=== PATIENT | male | born 1950 | race Caucasian/White ===

== ENCOUNTER → 2017-02-17 | Outpatient (CLI) | payer SELFPAY ==
[~2017-02-17] MED LIST: MOTRIN 600600 MG/TAB PO
== END ==
LOC: COL.RAD 09:17
DX: Z02.71 Encounter for disability determination (principal); M47.816 Spondylosis without myelopathy or radiculopathy, lumbar region

== ENCOUNTER → 2018-03-02 | Outpatient (CLI) | payer MEDICARE, BC | LOC: MHCPAIN 15:09 | DX: G89.29 Other chronic pain (principal); M47.817 Spondylosis without myelopathy or radiculopathy, lumbosacral region; M54.16 Radiculopathy, lumbar region; M53.3 Sacrococcygeal disorders, not elsewhere classified; M96.1 Postlaminectomy syndrome, not elsewhere classified | CPT/HCPCS: G0463 ==

== ENCOUNTER → 2018-03-10 | Outpatient (CLI) | payer MEDICARE, BC | LOC: MHCPAIN 09:34 | DX: M47.817 Spondylosis without myelopathy or radiculopathy, lumbosacral region (principal); M54.16 Radiculopathy, lumbar region | CPT/HCPCS: G0260; J1040 ==

== ENCOUNTER → 2018-04-21 | Outpatient (CLI) | payer MEDICARE, BC | LOC: MHCPAIN 10:48 | DX: G89.29 Other chronic pain (principal); M47.817 Spondylosis without myelopathy or radiculopathy, lumbosacral region; M54.16 Radiculopathy, lumbar region; M53.3 Sacrococcygeal disorders, not elsewhere classified; M96.1 Postlaminectomy syndrome, not elsewhere classified | CPT/HCPCS: G0463 ==

== ENCOUNTER → 2018-05-03 | Outpatient (CLI) | payer MEDICARE, BC | LOC: MHCPAIN 11:24 | DX: M47.817 Spondylosis without myelopathy or radiculopathy, lumbosacral region (principal); M54.16 Radiculopathy, lumbar region | CPT/HCPCS: J1100; Q9967 ==

== ENCOUNTER → 2018-05-17 | Outpatient (CLI) | payer MEDICARE, BC | LOC: MHCPAIN 10:48 | DX: G89.29 Other chronic pain (principal); M47.817 Spondylosis without myelopathy or radiculopathy, lumbosacral region; M54.16 Radiculopathy, lumbar region; M53.3 Sacrococcygeal disorders, not elsewhere classified; M96.1 Postlaminectomy syndrome, not elsewhere classified | CPT/HCPCS: G0463 ==

== ENCOUNTER 2018-05-18 12:45 | Outpatient (RCR) | payer MEDICARE, BC | END 2018-06-11 10:52 | disposition home or self-care (01) | LOC: WSPT 12:45 | DX: M47.26 Other spondylosis with radiculopathy, lumbar region (principal); M47.818 Spondylosis without myelopathy or radiculopathy, sacral and sacrococcygeal region; M53.3 Sacrococcygeal disorders, not elsewhere classified; M96.1 Postlaminectomy syndrome, not elsewhere classified; G89.29 Other chronic pain | CPT/HCPCS: G8978-GP; G8979-GP ==

== ENCOUNTER → 2018-08-11 | Outpatient (CLI) | payer MEDICARE, BC | LOC: MHCPAIN 11:09 | DX: G89.29 Other chronic pain (principal); M47.817 Spondylosis without myelopathy or radiculopathy, lumbosacral region; M54.16 Radiculopathy, lumbar region; M53.3 Sacrococcygeal disorders, not elsewhere classified; M96.1 Postlaminectomy syndrome, not elsewhere classified | CPT/HCPCS: G0463 ==

== ENCOUNTER → 2018-08-12 | Outpatient (CLI) | payer MEDICARE, BC | LOC: MHCPAIN 13:16 | DX: M47.817 Spondylosis without myelopathy or radiculopathy, lumbosacral region (principal); M54.16 Radiculopathy, lumbar region | CPT/HCPCS: J1100; Q9967 ==

== ENCOUNTER → 2018-08-18 | Outpatient (CLI) | payer MEDICARE, BC | LOC: MHCPAIN 12:49 | DX: G89.29 Other chronic pain (principal); M47.817 Spondylosis without myelopathy or radiculopathy, lumbosacral region; M54.16 Radiculopathy, lumbar region; M53.3 Sacrococcygeal disorders, not elsewhere classified; M96.1 Postlaminectomy syndrome, not elsewhere classified | CPT/HCPCS: G0463 ==

== ENCOUNTER → 2018-11-03 | Outpatient (CLI) | payer MEDICARE, BC | LOC: MHCPAIN 10:11 | DX: G89.29 Other chronic pain (principal); M47.817 Spondylosis without myelopathy or radiculopathy, lumbosacral region; M54.16 Radiculopathy, lumbar region; M53.3 Sacrococcygeal disorders, not elsewhere classified; M96.1 Postlaminectomy syndrome, not elsewhere classified | CPT/HCPCS: G0463 ==

== ENCOUNTER 2018-12-20 10:42 | Emergency (ER) | payer MEDICARE, BC ==
[~2018-12-20] VITALS: Ht 170.2 cm; Wt 75.9 kg
[2018-12-20 11:04] VITALS: BP 162/88; TEMP 97.9
[2018-12-20 12:00] VITALS: PULSE 71
== END 2018-12-20 12:05 | disposition home or self-care (01) ==
LOC: COL.ER 10:42
DX: S92.342A Displaced fracture of fourth metatarsal bone, left foot, initial encounter for closed fracture (principal); W31.9XXA Contact with unspecified machinery, initial encounter

== ENCOUNTER → 2018-12-23 | Outpatient (CLI) | payer MEDICARE, BC | LOC: MHCPAIN 08:44 | DX: M54.16 Radiculopathy, lumbar region (principal); M47.817 Spondylosis without myelopathy or radiculopathy, lumbosacral region; G89.29 Other chronic pain | CPT/HCPCS: G0463; J1100; Q9967 ==

== ENCOUNTER → 2019-02-07 | Outpatient (CLI) | payer MEDICARE, BC | LOC: MHCPAIN 10:56 | DX: G89.29 Other chronic pain (principal); M47.817 Spondylosis without myelopathy or radiculopathy, lumbosacral region; M54.16 Radiculopathy, lumbar region; M53.3 Sacrococcygeal disorders, not elsewhere classified; M96.1 Postlaminectomy syndrome, not elsewhere classified | CPT/HCPCS: G0463 ==

== ENCOUNTER → 2019-05-10 | Outpatient (CLI) | payer MEDICARE, BC | LOC: MHCPAIN 11:03 | DX: M47.817 Spondylosis without myelopathy or radiculopathy, lumbosacral region (principal); M54.16 Radiculopathy, lumbar region | CPT/HCPCS: G0463 ==

== ENCOUNTER 2019-09-02 06:05 | Emergency (ER) | payer MEDICARE, BC ==
[~2019-09-02] VITALS: Ht 167.6 cm; Wt 77.3 kg
[2019-09-02 06:14] VITALS: TEMP 98.9
[2019-09-02] MEDS ORDERED: CEPHALEXIN500 M1 PO (06:35)
[2019-09-02] MEDS ORDERED: LEVAQUIN 750MG750 M1 PO (06:35)
[2019-09-02 06:57] VITALS: BP 134/90; PULSE 62
== END 2019-09-02 07:00 | disposition home or self-care (01) ==
LOC: COL.ER 06:05
DX: S61.221A Laceration with foreign body of left index finger without damage to nail, initial encounter (principal); Z23 Encounter for immunization; W45.8XXA Other foreign body or object entering through skin, initial encounter

== ENCOUNTER → 2019-10-19 | Outpatient (CLI) | payer MEDICARE, BC ==
[~2019-10-19] MED LIST changes: +CEPHALEXIN500 M1 PO; +LEVAQUIN 750MG750 M1 PO
== END ==
LOC: MHCPAIN 11:24
DX: M47.817 Spondylosis without myelopathy or radiculopathy, lumbosacral region (principal); M54.5 Low back pain; M53.3 Sacrococcygeal disorders, not elsewhere classified; M96.1 Postlaminectomy syndrome, not elsewhere classified; M54.16 Radiculopathy, lumbar region; G89.29 Other chronic pain
CPT/HCPCS: G0463

== ENCOUNTER → 2019-10-26 | Outpatient (CLI) | payer MEDICARE, BC ==
[~2019-10-26] MED LIST changes: +B-121000 MCG PO; +FOLIC ACID 40400 MCG PO; +LIORESAL 1010 MG/TAB PO; +NATURAL IRON65 MG; +OMEGA-3 1000 MG1 CAP PO; +ONE-A-DAY ESSE1 EACH PO; +TIROSINT100 MC1 PO; +TYLENOL 325MG325 MG PO; +ULTRAM 50MG TAB50 MG PO; +VITAMIN C500 MG PO; +VOLTAREN 75 DR75 MG PO
== END ==
LOC: COL.LAB 13:08
DX: Z01.812 Encounter for preprocedural laboratory examination (principal); Z01.83 Encounter for blood typing; Z20.828 Contact with and (suspected) exposure to other viral communicable diseases; M16.11 Unilateral primary osteoarthritis, right hip

== ENCOUNTER 2019-10-31 05:16 | Day surgery (SDC) | payer MEDICARE, BC ==
[2019-10-31] VITALS (12 sets, daily range): BP systolic 110–148; BP diastolic 62–87; PULSE 54–95; TEMP 98–98.9
[~2019-10-31] VITALS: Ht 167.6 cm; Wt 74.3 kg
--- NOTE | 2019-10-31 05:15 | NUR ---
Arrived to room 329 via wheelchair. Admission assessment complete. Oriented to room and policy. IV started in right [id number] attempt. Preop meds given, consent signed. Call light in reach. Will monitor.
[~2019-10-31 05:16] MED LIST changes: -FOLIC ACID 40400 MCG PO; -NATURAL IRON65 MG
[2019-10-31] MEDS ORDERED: FOLIC ACID 40400 MCG PO (05:51)
[2019-10-31] MEDS ORDERED: NATURAL IRON65 MG (05:52)
--- NOTE | 2019-10-31 06:25 | NUR ---
To OR via bed at this time.
--- NOTE | 2019-10-31 11:01 | NUR ---
PT TO ROOM 329 PER BED WITH REPORT FROM [facility] PAC[facility] @ 1023 PT IS A/O X3, LUNGS CLEAR, BOWEL SOUNDS PRESENT. PEDAL PULSES PALPABLE. IV TO PUMP. BULKY DRESSING TO RIGHT HIP CDI. PT DENIES N/V.
--- NOTE | 2019-10-31 11:21 | NUR ---
STARTED PO PAIN MEDICATION ORDERED. PT REPORTING INCREASING PAIN TO HIP.
--- NOTE | 2019-10-31 15:55 | NUR ---
PT C/O INCREASING PAIN. ULTRADamon IS NOT WORKING BY PT REPORT. GAVE ANOTHER DOSE OF OXYCODONE. PT HAD NAUSEA AND VOMITED LUNCH. IV ZOFRAN GIVEN.
--- NOTE | 2019-10-31 16:03 | NUR ---
Emergency Management Director met with the patient to complete initial intake. The patient lives alone in [place]. The patient has a walker, cane, and is independent with ADLs. The patient's PCP is Dr. Hill and patient receives medications from [facility] with no difficulties. The patient does not have advanced directives in the EMR and was not interested in DPOA-HC form at this time. The patient has two children over 18, Rudi San from [place] and Navdeep San from [place], [place]. Their phone numbers are [phone] and [phone], respectively. The patient will return home at discharge. He will have a person stay with him for two weeks to assist him. He will be having outpatient PT at [facility] and his first appointment is November 06 at 1020. The patient has no concerns about returning home. There are no additional needs at this time.
--- NOTE | 2019-10-31 17:24 | NUR ---
UP TO RECLINER WITH SBA. PT BECAME NAUSEATED AND VOMITED. COOL CLOTH AND SPRITE PROVIDED TO PT.
--- NOTE | 2019-10-31 18:53 | NUR ---
REPORT TO MALORIE ELMORE.
--- NOTE | 2019-10-31 20:00 | NUR ---
Pt. sitting up in the chair at this time. Pt. is A&OX3, assessment complete. IV to rt. hand patent, IV fluids infusing per orders. Dressing to rt. hip CDI. Pt. reports pain at a 6 on pain scale, will give pain meds per orders. Pt. denies further needs, call light within reach.
[2019-11-01] VITALS: BP 109/57; PULSE 78; TEMP 98.4
[2019-11-01 03:38] VITALS: BP 127/72; PULSE 78; TEMP 98.4
--- NOTE | 2019-11-01 06:59 | NUR ---
REPORT FROM MALORIE.
[2019-11-01 07:21] LABS: HEMATOCRIT 37.3 % (42.0-52.0); HEMOGLOBIN 12.9 g/dl (13.5-18.0)
[2019-11-01 07:56] VITALS: BP 98/59; PULSE 72; TEMP 98.4
[2019-11-01 08:06] VITALS: BP 117/71; PULSE 75; TEMP 97.7
--- NOTE | 2019-11-01 10:12 | NUR ---
PT UP IN RECLINER OVER NIGHT. ATE BREAKFAST. RECIEVED 1 DOSE OF ZOFRAN AT SHIFT CHANGE THIS AM. PAIN CONTROLLED WITH PO PAIN MEDS. DRESSING CHANGE COMPLETE. INCISON WITH WELL APPROXIMATED EDGES. AQUACEL PLACED OVER INCISION. PT AMBULATED WITH THERAPY WITH SLOW STEADY GAIT.
[2019-11-01 11:00] VITALS: BP 101/64; PULSE 67; TEMP 98.3
--- NOTE | 2019-11-01 12:19 | NUR ---
First visit from the casting finisher. No needs right now.
[2019-11-01 15:21] VITALS: BP 118/82; PULSE 81; TEMP 98.6
[2019-11-01] MEDS ORDERED: ASPI325T6 PO (16:44)
[2019-11-01] MEDS ORDERED: CELEBREX 200MG200 MG PO (16:44)
[2019-11-01] MEDS ORDERED: ROXICODONE 55 MG/TAB PO (16:45)
[2019-11-01] MEDS ORDERED: NORCO 325 MG-7.1 TAB PO (16:45)
[2019-11-01] MEDS ORDERED: SENOKOT S 50 MG1 TAB PO (16:46)
--- NOTE | 2019-11-01 17:23 | NUR ---
DISCHARGE INSTRUCTIONS REVIEWED WITH PT. QUESTIONS SOLICITED AND ANSWERED. PT TAKEN BY WHEEL CHAIR TO ED ENTRANCE.
== END 2019-11-01 17:15 | disposition home or self-care (01) ==
LOC: JCC 05:16 → SDCO 05:16 → JCC 05:16 → EDSTATUS 11:00 → SDCO 11-01 17:15 → JCC 11-01 17:15
PROVIDERS: Orthopaedic Surgery
DX: M16.11 Unilateral primary osteoarthritis, right hip (principal); E78.5 Hyperlipidemia, unspecified; E05.00 Thyrotoxicosis with diffuse goiter without thyrotoxic crisis or storm; G89.29 Other chronic pain; E78.00 Pure hypercholesterolemia, unspecified; M81.0 Age-related osteoporosis without current pathological fracture; Z87.891 Personal history of nicotine dependence; Z80.9 Family history of malignant neoplasm, unspecified; Z79.899 Other long term (current) drug therapy; Z82.49 Family history of ischemic heart disease and other diseases of the circulatory system
CPT/HCPCS: OP; A4314; A9284; C1713; C1776; J0690; J2250; J2405; J2704; J7030; J7120

== ENCOUNTER → 2020-01-17 | Outpatient (CLI) | payer MEDICARE, BC ==
[~2020-01-17] MED LIST changes: +ASPI325T6 PO; +CELEBREX 200MG200 MG PO; +FOLIC ACID 40400 MCG PO; +NATURAL IRON65 MG; +NORCO 325 MG-7.1 TAB PO; +ROXICODONE 55 MG/TAB PO; +SENOKOT S 50 MG1 TAB PO
== END ==
LOC: MHCPAIN 11:14
DX: M47.817 Spondylosis without myelopathy or radiculopathy, lumbosacral region (principal); M54.5 Low back pain; M53.3 Sacrococcygeal disorders, not elsewhere classified; G89.29 Other chronic pain; I48.91 Unspecified atrial fibrillation; Z79.01 Long term (current) use of anticoagulants
CPT/HCPCS: G0463

== ENCOUNTER 2020-03-21 16:28 | Emergency (ER) | payer MEDICARE, BC ==
[~2020-03-21] VITALS: Ht 167.6 cm; Wt 79.5 kg
[2020-03-21 16:35] VITALS: BP 154/78; TEMP 98.9
[2020-03-21] MEDS ORDERED: CEPHALEXIN500 M1 PO (17:28)
[2020-03-21 17:29] VITALS: PULSE 78
== END 2020-03-21 17:35 | disposition home or self-care (01) ==
LOC: COL.ER 16:28
DX: S61.411A Laceration without foreign body of right hand, initial encounter (principal); S60.457A Superficial foreign body of left little finger, initial encounter; L03.012 Cellulitis of left finger; I48.91 Unspecified atrial fibrillation; Z23 Encounter for immunization; Z79.01 Long term (current) use of anticoagulants; W26.0XXA Contact with knife, initial encounter; Z79.82 Long term (current) use of aspirin

== ENCOUNTER → 2020-04-02 | Outpatient (CLI) | payer MEDICARE, BC | LOC: MHCPAIN 11:00 | DX: M47.817 Spondylosis without myelopathy or radiculopathy, lumbosacral region (principal); M54.5 Low back pain; M96.1 Postlaminectomy syndrome, not elsewhere classified; G89.29 Other chronic pain | CPT/HCPCS: G0463 ==

== ENCOUNTER → 2020-04-02 | Outpatient (CLI) | payer MEDICARE, BC ==
[2020-04-02 11:47] VITALS: BP 107/73; PULSE 61; TEMP 98.8
== END ==
LOC: COL.ER 11:41
DX: Z48.02 Encounter for removal of sutures (principal)

== ENCOUNTER → 2020-06-01 | Outpatient (CLI) | payer MEDICARE, BC | LOC: COL.LAB 09:48 | DX: Z01.812 Encounter for preprocedural laboratory examination (principal); Z20.822 Contact with and (suspected) exposure to COVID-19 ==

== ENCOUNTER → 2020-07-02 | Outpatient (CLI) | payer MEDICARE, BC | LOC: MHCPAIN 10:52 | DX: M47.816 Spondylosis without myelopathy or radiculopathy, lumbar region (principal); M54.5 Low back pain; M96.1 Postlaminectomy syndrome, not elsewhere classified; G89.29 Other chronic pain | CPT/HCPCS: G0463 ==

== ENCOUNTER → 2020-10-02 | Outpatient (CLI) | payer MEDICARE, BC | LOC: MHCPAIN 10:56 | DX: M54.5 Low back pain (principal); M47.817 Spondylosis without myelopathy or radiculopathy, lumbosacral region; M96.1 Postlaminectomy syndrome, not elsewhere classified | CPT/HCPCS: G0463 ==

== ENCOUNTER 2023-07-02 12:55 | Emergency (ER) | payer MEDICARE, BC ==
[~2023-07-02] VITALS: Ht 167.6 cm; Wt 77.3 kg
[2023-07-02 13:08] VITALS: BP 137/90; TEMP 98.4
[2023-07-02] MEDS ORDERED: oxyCODONE/Acetaminophen 5-325 MG TAB PO ONE (13:30)
[2023-07-02] MEDS ORDERED: Ketorolac 30 MG/ML VIAL IM ONE (13:30)
[2023-07-02] MEDS ORDERED: PERCOCET 325 MG1 TA2 PO (14:44)
[2023-07-02 15:00] VITALS: PULSE 70
[2023-07-02] MEDS ORDERED: MOTRIN 800800 MG/TAB PO (15:02)
== END 2023-07-02 15:00 | disposition home or self-care (01) ==
LOC: COL.ER 12:55
DX: S20.212A Contusion of left front wall of thorax, initial encounter (principal); W19.XXXA Unspecified fall, initial encounter
CPT/HCPCS: J1885